=== PATIENT | female | born 1955 | race Two or more races ===

== ENCOUNTER 2017-07-27 16:37 | Outpatient (CLI) | payer OTHER ==
[~2017-07-27 16:37] MED LIST: AMOXICILLIN500 MG PO; ANASPAZ0.125 MG PO; AZITHROMYCIN250 MG PO; BEE WITH C1 CAP PO; BIAXIN500 MG PO; CALTRATE 600600 MG PO; CHLORDIAZEPOXIDE5 MG PO; KETO10TA2 PO; METAXALONE PO; ORPH100T PO; PREVACID30 MG PO; PROVENTIL0.5 ML/2.5 IH; RANITIDINE HCL300 M1 PO; SIMVASTATIN10 MG PO; TUSSI PRES-B L120 M1 PO; [UNRECOGNIZED DRUG - OTHER]
== END 2017-07-27 17:00 | disposition home or self-care (01) ==
LOC: RAD 16:37
DX: M79.641 Pain in right hand (principal); M25.531 Pain in right wrist

== ENCOUNTER 2017-09-14 11:47 | Emergency (ER) | payer OTHER ==
[~2017-09-14] VITALS: Ht 154.9 cm; Wt 48.1 kg
[2017-09-14] MEDS ORDERED: TEMAZEPAM30 MG (13:05)
[2017-09-14] MEDS ORDERED: SYNTHROID50 MCG (13:05)
[2017-09-14] MEDS ORDERED: GABAPENTIN300 MG (13:05)
== END 2017-09-14 17:11 | disposition home or self-care (01) ==
LOC: ER 11:47
DX: S43.024A Posterior dislocation of right humerus, initial encounter (principal); X50.9XXA Other and unspecified overexertion or strenuous movements or postures, initial encounter; Y93.89 Activity, other specified; Y92.098 Other place in other non-institutional residence as the place of occurrence of the external cause; Y99.8 Other external cause status

== ENCOUNTER 2018-04-11 09:54 | Outpatient (CLI) | payer OTHER ==
[~2018-04-11 09:54] MED LIST changes: +GABAPENTIN300 MG; +SYNTHROID50 MCG; +TEMAZEPAM30 MG
== END 2018-04-11 10:16 | disposition home or self-care (01) ==
LOC: NUCLEAR 09:54
DX: I11.9 Hypertensive heart disease without heart failure (principal)

== ENCOUNTER 2018-06-05 17:03 | Inpatient (IN) | payer OTHER ==
[~2018-06-05] VITALS: Ht 154.9 cm; Wt 47.6 kg
[2018-06-13] MEDS ORDERED: MONUROL3 GM PO ×2 (10:23→10:35)
== END 2018-06-13 14:49 | disposition home or self-care (01) | DRG 690 ==
LOC: MEDJ 17:03 → SURH 17:03
PROC: 8E0ZXY6 Isolation (ICD-10-PCS; principal; 2018-06-05)
PROC: BT43ZZZ Ultrasonography of Bilateral Kidneys (ICD-10-PCS; 2018-06-05)
PROC: B246ZZZ Ultrasonography of Right and Left Heart (ICD-10-PCS; 2018-06-06)
PROC: 4A12X4Z Monitoring of Cardiac Electrical Activity, External Approach (ICD-10-PCS; 2018-06-06)
DX: N39.0 Urinary tract infection, site not specified (principal); B96.5 Pseudomonas (aeruginosa) (mallei) (pseudomallei) as the cause of diseases classified elsewhere

== ENCOUNTER 2018-07-05 09:01 | Outpatient (CLI) | payer OTHER ==
[~2018-07-05 09:01] MED LIST changes: +MONUROL3 GM PO
== END 2018-07-05 09:12 | disposition home or self-care (01) ==
LOC: RAD 501 09:01
DX: N30.00 Acute cystitis without hematuria (principal)

== ENCOUNTER 2018-07-17 12:00 | Outpatient (CLI) | payer OTHER | END 2018-07-17 13:30 | disposition home or self-care (01) | LOC: TOM 12:00 | DX: R31.21 Asymptomatic microscopic hematuria (principal) ==

== ENCOUNTER 2018-08-28 11:22 | Outpatient (CLI) | payer OTHER | END 2018-08-28 13:58 | disposition home or self-care (01) | LOC: MAMO-SONO 11:22 | DX: N64.4 Mastodynia (principal); N60.11 Diffuse cystic mastopathy of right breast; Z12.31 Encounter for screening mammogram for malignant neoplasm of breast; N63.10 Unspecified lump in the right breast, unspecified quadrant; N63.20 Unspecified lump in the left breast, unspecified quadrant ==

== ENCOUNTER → 2018-08-28 | Outpatient (CLI) | payer OTHER | END | disposition home or self-care (01) | LOC: NUCLEAR 13:27 | DX: M81.0 Age-related osteoporosis without current pathological fracture (principal) ==

== ENCOUNTER 2019-03-01 07:10 | Outpatient (CLI) | payer OTHER | END 2019-03-01 07:31 | disposition home or self-care (01) | LOC: RAD 07:10 → MAMO-SONO 07:15 → RAD 07:31 | DX: R13.19 Other dysphagia (principal); J44.1 Chronic obstructive pulmonary disease with (acute) exacerbation ==

== ENCOUNTER 2019-05-10 08:06 | Outpatient (CLI) | payer OTHER | END 2019-05-10 10:15 | disposition home or self-care (01) | LOC: SONOGRAMA 08:06 | DX: E04.2 Nontoxic multinodular goiter (principal) ==

== ENCOUNTER 2019-08-06 22:59 | Emergency (ER) | payer OTHER ==
[~2019-08-06] VITALS: Ht 154.9 cm; Wt 55.8 kg
== END 2019-08-07 11:29 | disposition home or self-care (01) ==
LOC: ER 22:59
DX: N39.0 Urinary tract infection, site not specified (principal); B96.5 Pseudomonas (aeruginosa) (mallei) (pseudomallei) as the cause of diseases classified elsewhere

== ENCOUNTER 2019-08-21 14:01 | Outpatient (CLI) | payer OTHER | END 2019-08-21 15:00 | disposition home or self-care (01) | LOC: RAD 14:01 | DX: M54.2 Cervicalgia (principal); J44.1 Chronic obstructive pulmonary disease with (acute) exacerbation; R51 Headache ==

== ENCOUNTER 2019-11-12 14:17 | Outpatient (CLI) | payer OTHER ==
[2019-11-21] MEDS ORDERED: ZANAFLEX2 MG PO (16:23)
[2019-11-21] MEDS ORDERED: MOBIC7.5 MG PO (16:24)
[2019-12-19] MEDS ORDERED: MOBIC7.5 MG PO (15:15)
[2019-12-19] MEDS ORDERED: ZANAFLEX2 MG PO (15:15)
== END 2019-11-12 14:25 | disposition home or self-care (01) ==
LOC: RAD 14:17
PROVIDERS: ATTEND Internal Medicine
DX: M54.5 Low back pain (principal)

== ENCOUNTER 2020-01-23 11:14 | Outpatient (CLI) | payer OTHER ==
[~2020-01-23 11:14] MED LIST changes: +MOBIC7.5 MG PO; +ZANAFLEX2 MG PO
== END 2020-01-23 11:35 | disposition home or self-care (01) ==
LOC: LAB 11:14
PROVIDERS: ATTEND Internal Medicine
DX: J44.1 Chronic obstructive pulmonary disease with (acute) exacerbation (principal); Z20.828 Contact with and (suspected) exposure to other viral communicable diseases; J01.80 Other acute sinusitis

== ENCOUNTER 2020-04-25 10:32 | Outpatient (CLI) | payer OTHER | END 2020-04-25 10:43 | disposition home or self-care (01) | LOC: TOM 10:32 | PROVIDERS: ATTEND Internal Medicine Pulmonary Disease | DX: A31.0 Pulmonary mycobacterial infection (principal); J43.2 Centrilobular emphysema; J30.1 Allergic rhinitis due to pollen; Z72.0 Tobacco use; R06.02 Shortness of breath ==

== ENCOUNTER 2020-04-28 14:33 | Outpatient (CLI) | payer OTHER | END 2020-04-28 14:52 | disposition home or self-care (01) | LOC: NUCLEAR 14:33 | PROVIDERS: ATTEND Obstetrics & Gynecology Maternal & Fetal Medicine | DX: M81.0 Age-related osteoporosis without current pathological fracture (principal) ==

== ENCOUNTER → 2020-05-19 07:28 | Outpatient (CLI) | payer OTHER | END | disposition home or self-care (01) | LOC: LAB 07:28 | PROVIDERS: ATTEND Internal Medicine Pulmonary Disease | DX: J43.2 Centrilobular emphysema (principal); J30.1 Allergic rhinitis due to pollen; Z72.0 Tobacco use; A15.0 Tuberculosis of lung ==

== ENCOUNTER → 2020-05-20 06:52 | Outpatient (CLI) | payer OTHER | END | disposition home or self-care (01) | LOC: LAB 06:52 | PROVIDERS: ATTEND Internal Medicine Pulmonary Disease | DX: J43.8 Other emphysema (principal); J30.1 Allergic rhinitis due to pollen; Z72.0 Tobacco use; A15.0 Tuberculosis of lung ==

== ENCOUNTER → 2020-05-21 06:46 | Outpatient (CLI) | payer OTHER | END | disposition home or self-care (01) | LOC: LAB 06:46 | PROVIDERS: ATTEND Internal Medicine Pulmonary Disease | DX: J43.2 Centrilobular emphysema (principal); J30.1 Allergic rhinitis due to pollen; Z72.0 Tobacco use; A15.0 Tuberculosis of lung ==

== ENCOUNTER → 2020-07-10 06:46 | Outpatient (CLI) | payer OTHER | END | disposition home or self-care (01) | LOC: LAB 06:46 | PROVIDERS: ATTEND Internal Medicine Pulmonary Disease | DX: J30.1 Allergic rhinitis due to pollen (principal); Z72.0 Tobacco use; J43.2 Centrilobular emphysema; A31.0 Pulmonary mycobacterial infection ==

== ENCOUNTER → 2021-01-21 06:14 | Outpatient (CLI) | payer OTHER | END | disposition home or self-care (01) | LOC: LAB 06:14 | PROVIDERS: ATTEND Internal Medicine Pulmonary Disease | DX: J43.2 Centrilobular emphysema (principal); Z72.0 Tobacco use; A31.0 Pulmonary mycobacterial infection ==

== ENCOUNTER 2021-02-10 13:45 | Outpatient (CLI) | payer OTHER | END 2021-02-10 13:57 | disposition home or self-care (01) | LOC: TOM 13:45 | DX: M54.16 Radiculopathy, lumbar region (principal); M54.5 Low back pain; M51.36 Other intervertebral disc degeneration, lumbar region ==

== ENCOUNTER → 2021-03-20 06:35 | Outpatient (CLI) | payer OTHER | END | disposition home or self-care (01) | LOC: LAB 06:35 | PROVIDERS: ATTEND Internal Medicine Hematology & Oncology | DX: D60.8 Other acquired pure red cell aplasias (principal); D70.8 Other neutropenia; C90.00 Multiple myeloma not having achieved remission; C88.8 Other malignant immunoproliferative diseases ==

== ENCOUNTER 2021-05-18 06:35 | Outpatient (CLI) | payer OTHER | END 2021-05-18 06:36 | disposition home or self-care (01) | LOC: LAB 06:35 | PROVIDERS: ATTEND Neurological Surgery | DX: M54.59 Other low back pain (principal); M51.36 Other intervertebral disc degeneration, lumbar region; M54.16 Radiculopathy, lumbar region ==

== ENCOUNTER 2021-08-04 17:26 | Emergency (ER) | payer OTHER ==
[~2021-08-04] VITALS: Ht 154.9 cm; Wt 59.0 kg
== END 2021-08-04 19:06 | disposition home or self-care (01) ==
LOC: ER 17:26
DX: S93.401A Sprain of unspecified ligament of right ankle, initial encounter (principal); W18.30XA Fall on same level, unspecified, initial encounter; Y93.9 Activity, unspecified; Y92.512 Supermarket, store or market as the place of occurrence of the external cause; Y99.9 Unspecified external cause status

== ENCOUNTER 2021-08-12 16:45 | Outpatient (CLI) | payer OTHER | END 2021-08-13 11:40 | disposition home or self-care (01) | LOC: RAD 16:45 | PROVIDERS: ATTEND Orthopaedic Surgery | DX: S93.431A Sprain of tibiofibular ligament of right ankle, initial encounter (principal); M79.671 Pain in right foot ==

== ENCOUNTER 2021-09-09 11:54 | Outpatient (CLI) | payer OTHER | END 2021-09-09 12:04 | disposition home or self-care (01) | LOC: MAMO-SONO 11:54 | PROVIDERS: ATTEND Internal Medicine | DX: N63.0 Unspecified lump in unspecified breast (principal) ==

== ENCOUNTER 2021-09-09 12:42 | Outpatient (CLI) | payer OTHER ==
[2021-10-07] MEDS ORDERED: LEVOTHYROXINE25 MCG PO (12:07)
[2021-10-07] MEDS ORDERED: NEURONTIN300 MG PO (12:08)
== END 2021-09-09 12:46 | disposition home or self-care (01) ==
LOC: NUCLEAR 12:42
PROVIDERS: ATTEND Orthopaedic Surgery
DX: M81.0 Age-related osteoporosis without current pathological fracture (principal)

== ENCOUNTER 2021-09-28 06:38 | Outpatient (CLI) | payer OTHER | END 2021-09-28 06:50 | disposition home or self-care (01) | LOC: LAB 06:38 | PROVIDERS: ATTEND Orthopaedic Surgery | DX: I10 Essential (primary) hypertension (principal); D64.9 Anemia, unspecified; D68.8 Other specified coagulation defects; E88.9 Metabolic disorder, unspecified; N39.0 Urinary tract infection, site not specified; B95.62 Methicillin resistant Staphylococcus aureus infection as the cause of diseases classified elsewhere; E11.9 Type 2 diabetes mellitus without complications; Z76.89 Persons encountering health services in other specified circumstances ==

== ENCOUNTER 2021-10-13 06:03 | Day surgery (SDC) | payer OTHER ==
[~2021-10-13 06:03] MED LIST changes: +LEVOTHYROXINE25 MCG PO; +NEURONTIN300 MG PO
== END 2021-10-13 12:15 | disposition home or self-care (01) ==
LOC: CIR.AMB 06:03
PROVIDERS: ATTEND Orthopaedic Surgery
DX: S93.431A Sprain of tibiofibular ligament of right ankle, initial encounter (principal); M76.71 Peroneal tendinitis, right leg; Z88.8 Allergy status to other drugs, medicaments and biological substances; E03.9 Hypothyroidism, unspecified

== ENCOUNTER 2022-03-16 13:12 | Outpatient (CLI) | payer OTHER | END 2022-03-16 13:20 | disposition home or self-care (01) | LOC: RAD 13:12 | PROVIDERS: ATTEND Physical Medicine & Rehabilitation Sports Medicine | DX: M54.51 Vertebrogenic low back pain (principal); W19.XXXA Unspecified fall, initial encounter ==

== ENCOUNTER 2022-12-10 11:56 | Outpatient (CLI) | payer OTHER | END 2022-12-10 12:07 | disposition home or self-care (01) | LOC: SONOGRAMA 11:56 | PROVIDERS: ATTEND Radiology Diagnostic Ultrasound | DX: D21.12 Benign neoplasm of connective and other soft tissue of left upper limb, including shoulder (principal) ==

== ENCOUNTER 2023-04-26 14:22 | Outpatient (CLI) | payer OTHER | END 2023-04-26 14:33 | disposition home or self-care (01) | LOC: MRI 14:22 | PROVIDERS: ATTEND Internal Medicine | DX: M54.17 Radiculopathy, lumbosacral region (principal); Z88.8 Allergy status to other drugs, medicaments and biological substances | CPT/HCPCS: 72148 ==

== ENCOUNTER 2024-07-19 14:04 | Outpatient (CLI) | payer OTHER | END 2024-07-19 14:10 | disposition home or self-care (01) | LOC: SONOGRAMA 14:04 | PROVIDERS: ATTEND Internal Medicine | DX: N30.91 Cystitis, unspecified with hematuria (principal); R10.9 Unspecified abdominal pain ==

== ENCOUNTER 2024-10-09 12:02 | Outpatient (CLI) | payer OTHER | END 2024-10-09 12:08 | disposition home or self-care (01) | LOC: RAD 12:02 | PROVIDERS: ATTEND Internal Medicine | DX: M54.17 Radiculopathy, lumbosacral region (principal); J44.1 Chronic obstructive pulmonary disease with (acute) exacerbation; Z01.810 Encounter for preprocedural cardiovascular examination ==

== ENCOUNTER 2024-11-02 06:07 | Outpatient (CLI) | payer OTHER ==
[2024-11-02 07:31] LABS: HEMATOCRIT 37.8 % (36.0-45.00); HEMOGLOBIN 12.5 g/dL (12.0-15.00); MEAN CELL VOLUME 93.3 fL (80.00-100.00); MEAN CORPUSCULAR HEMOGLOBIN 30.7 pg (27.00-32.0); MEAN CORPUSCULAR HGB CONC 32.9 g/dl (32.0-36.0); PLATELET COUNT 260 K/uL (150-450); RED BLOOD COUNT 4.05 M/uL (4.00-6.00); RED CELL DISTRIBUTION WIDTH 13.7 % (11.5-14.5)
[2024-11-02 07:45] LABS: INR 0.94; PARTIAL THROMBOPLASTIN TIME 27.7 SECONDS (22.0-34.0); PROTHROMBIN TIME 10.3 SECONDS (9.0-11.5)
[2024-11-02 08:12] LABS: URINE APPEARANCE Clear; URINE BILIRRUBIN Negative (NEGATIVE); URINE BLOOD Large; URINE COLOR Yellow; URINE GLUCOSE Negative (NEGATIVE); URINE KETONE Negative (NEGATIVE); URINE LEUKOCYTE Negative; URINE NITRATE Negative; URINE PROTEIN Negative (NEGATIVE); URINE UROBILINOGEN 0.2 E.U./dl
[2024-11-02 08:13] LABS: URINE BACTERIA 7.3 uL (0.0-1933); URINE EPITHELIAL CELLS 4.2 uL (0.0-38.8); URINE RBC 121.8 uL (0.0-20.8); URINE WBC 3.1 uL (0.0-23.2)
[2024-11-02 08:34] LABS: ALBUMIN 3.9 gm/dL (3.4-5.0); BILIRUBIN TOTAL 0.52 mg/dL (0.3-1.2); CALCIUM 8.8 mg/dL (8.5-10.1); CREATININE SERUM 0.93 mg/dL (0.55-1.02); GFR 59.95; GLOBULINA 3.3 G/DL (2.4-3.5); POTASSIUM 4.04 mEq/L (3.5-5.1); TOTAL PROTEIN 7.2 gm/dL (6.4-8.2)
[2024-11-02 10:02] LABS: URINE CAST 0.14 uL (0.0-1.40)
== END 2024-11-02 06:08 | disposition home or self-care (01) ==
LOC: LAB 06:07
PROVIDERS: ATTEND Obstetrics & Gynecology
DX: N39.0 Urinary tract infection, site not specified (principal); D50.9 Iron deficiency anemia, unspecified; E08.00 Diabetes mellitus due to underlying condition with hyperosmolarity without nonketotic hyperglycemic-hyperosmolar coma (NKHHC); N93.9 Abnormal uterine and vaginal bleeding, unspecified

== ENCOUNTER 2024-11-15 05:28 | Day surgery (SDC) | payer OTHER ==
[2024-11-08 11:38] VITALS: BP 120/81
[~2024-11-15] VITALS: Ht 154.9 cm; Wt 60.8 kg
[~2024-11-15 05:28] MED LIST changes: +LEXAPRO5 MG PO
[2024-11-15] MEDS ORDERED: POVIDONE-IODINE 118 ML BOTT TOP ONE (07:11)
[2024-11-15] MEDS ORDERED: KETOROLAC TROMETHAMINE 30 MG VIAL ONE (10:18)
[2024-11-15] MEDS ORDERED: KETOROLAC TROMETHAMINE 30 MG VIAL IV ONE (10:30)
== END 2024-11-15 11:25 | disposition home or self-care (01) ==
LOC: CIR.AMB 05:28
PROVIDERS: ATTEND Obstetrics & Gynecology
DX: N84.0 Polyp of corpus uteri (principal); N95.0 Postmenopausal bleeding

== ENCOUNTER 2025-01-01 14:13 | Outpatient (CLI) | payer OTHER | END 2025-01-01 14:19 | disposition home or self-care (01) | LOC: MAMO-SONO 14:13 | PROVIDERS: ATTEND Internal Medicine | DX: N64.4 Mastodynia (principal); R92.8 Other abnormal and inconclusive findings on diagnostic imaging of breast; Z12.31 Encounter for screening mammogram for malignant neoplasm of breast ==

== ENCOUNTER 2025-01-02 08:58 | Outpatient (CLI) | payer OTHER | END 2025-01-02 09:12 | disposition home or self-care (01) | LOC: TOM 08:58 | PROVIDERS: ATTEND Internal Medicine | DX: R10.9 Unspecified abdominal pain (principal) | CPT/HCPCS: 74177; Q9965 ==

== ENCOUNTER 2025-03-22 09:47 | Outpatient (CLI) | payer OTHER | END 2025-03-22 09:53 | disposition home or self-care (01) | LOC: TOM 09:47 | PROVIDERS: ATTEND Urology | DX: R31.21 Asymptomatic microscopic hematuria (principal); R31.0 Gross hematuria | CPT/HCPCS: 74178; Q9965 ==

== ENCOUNTER 2025-04-10 14:02 | Outpatient (CLI) | payer OTHER | END 2025-04-10 14:04 | disposition home or self-care (01) | LOC: RAD 14:02 | PROVIDERS: ATTEND Orthopaedic Surgery | DX: M25.571 Pain in right ankle and joints of right foot (principal) ==

== ENCOUNTER 2025-05-10 10:47 | Outpatient (CLI) | payer OTHER | END 2025-05-10 10:48 | disposition home or self-care (01) | LOC: NUCLEAR 10:47 | PROVIDERS: ATTEND Orthopaedic Surgery | DX: M81.0 Age-related osteoporosis without current pathological fracture (principal) ==

== ENCOUNTER 2025-05-30 13:41 | Outpatient (CLI) | payer OTHER | END 2025-05-30 13:46 | disposition home or self-care (01) | LOC: SONOGRAMA 13:41 | PROVIDERS: ATTEND Orthopaedic Surgery | DX: M76.71 Peroneal tendinitis, right leg (principal) ==